=== PATIENT | female | born 1955 | race Caucasian/White ===

== ENCOUNTER 2025-07-20 10:47 | Emergency (ER) | payer MEDICARE, SELFPAY ==
[2025-07-20 11:04] LABS: Appearance Urine Clear (Clear)
[2025-07-20 11:11] VITALS: BP 121/71; PULSE 86; RESP 18; TEMP 37.3; O2SAT 96
--- NOTE | 2025-07-20 12:25 | CRLHL7_ITS ---
For Patients: As a result of the Century Cures Act, medical imaging exams and procedure reports are released immediately into your electronic medical record. You may view this report before your referring provider. If you have questions, please contact your health care provider. INDICATION: Chest pain COMPARISON: None. TECHNIQUE: PA and lateral 2 view chest. FINDINGS: Lung volumes are good. No focal or diffuse opacities. No pulmonary edema. No pleural effusion. No pneumothorax. No pneumomediastinum. Normal cardiomediastinal silhouette. Bones: Scoliosis. IMPRESSION: Lungs clear. No acute findings. Dictated by Reba Pena MD @ 07/20/2025 1:39:08 PM (Electronically Signed)
--- NOTE | 2025-07-20 12:25 | CRLHL7_ITS ---
For Patients: As a result of the Century Cures Act, medical imaging exams and procedure reports are released immediately into your electronic medical record. You may view this report before your referring provider. If you have questions, please contact your health care provider. INDICATION: Left-sided abdominal pain TECHNIQUE: Axial images were obtained from the diaphragm to the pubic symphysis. Reformats were obtained in the coronal and sagittal plane. IV Contrast: 77 cc Isovue 370 Oral Contrast: None COMPARISON: None. FINDINGS: Lower chest: Minimal basilar discoid atelectasis. Liver: Normal in contour with focal fat adjacent to the falciform ligament. Gallbladder and bile ducts: Cholelithiasis with mild gallbladder wall thickening. Spleen: Unremarkable. Normal in size without mass. Pancreas: Unremarkable. No mass or inflammation. Adrenal glands: Indeterminate left adrenal nodule measuring 12 millimeters. Kidneys: Symmetric renal enhancement without hydronephrosis. Nonobstructing nephrolithiasis. Subcentimeter hypodensities which are too small for characterization although likely represent bilateral renal cysts. Vasculature: Atherosclerosis without abdominal aortic aneurysm. GI tract: The stomach is decompressed. Trace indistinctness of the fat at the level of the antrum (5, 87). No dilated loops of large or small intestine. Appendix unremarkable. Pelvis: Bladder is unremarkable. Mild nodularity of the uterus, likely leiomyomata. Bones: Unremarkable for age. IMPRESSION: 1. Cholelithiasis with gallbladder wall thickening. Differential diagnosis for the gallbladder-wall thickening includes hyperproteinemia, underlying liver disease or cholecystitis. 2. No dilated loops of large or small intestine. Equivocal fat stranding adjacent to the gastric antrum. Differential includes artifact or gastritis/peptic ulcer disease. 3. Left adrenal nodule measuring 12 millimeters. Follow-up outpatient adrenal MRI could be considered for further characterization. Please note that all CT scans at this facility use dose modulation, iterative reconstruction, and/or weight-based dosing when appropriate to reduce radiation dose to as low as reasonably achievable. Dictated by Nick No MD @ 07/20/2025 2:06:05 PM (Electronically Signed)
--- NOTE | 2025-07-20 12:50 | ED.ABDPAIN ---
HPI - Abdominal Pain General Date Seen: 07/20/25 Chief Complaint: Abdominal Pain Stated Complaint: Needs blood work Time Seen by Provider: 07/20/25 11:19 Source: patient Mode of arrival: ambulatory Limitations: no limitations History of Present Illness HPI narrative: Patient is a 70-year-old female presenting to the emergency department for abdominal pain. She states the pain has been going on for couple weeks and seems to be mostly after she eats. Is unable describe what the pain feels like. Currently she is not having any pain. She does note that the nausea that occurs after eats seems to be worse than the pain. She commonly is almost up without having too much pain. Pain is mostly on the left upper side of her abdomen. States when this 1st started 2 weeks ago she had some fevers and black stool. Stool was also soft. She states her stool is still soft but she has not noticed any further blood in her stool. Denies having pain like this before. No history of abdominal or gynecological surgeries. Has not noticed any dysuria or hematuria. Denies ever having symptoms like this before. She states she does not have a primary care provider. Also states she has noticed some intermittent chest pain in the past 2 weeks. She is unable describes the chest pain feels like a lipoma. She thinks is just referred from her abdomen but cannot say for certain. Denies any associated shortness of breath. Denies any history of heart disease. No history of blood clots. Related Data Home Medications ?Medication ?Instructions ?Recorded ?Confirmed No Known Home Medications 07/20/25 07/20/25 Allergies Allergy/AdvReac Type Severity Reaction Status Date / Time Sulfa (Sulfonamide Allergy Mild Verified 07/20/25 11:16 Antibiotics) pencillin Allergy Mild Uncoded 07/20/25 09:59 Review of Systems Status of ROS Reports: 10 or more systems reviewed and unremarkable except as noted in History and below [facility] Smoking Status: Never smoker How often do you have a drink containing alcohol: monthly or less AUDIT-C Alcohol total score: 1 Non-prescribed substance use: denies use service: No Exam Narrative: Exam Narrative: Const: Well-nourished, Well-developed, in mild distress Eyes: PERRL, no conjunctival injection, and symmetrical lids HENT: Atraumatic external nose and ears. Moist mucous membranes. Neck: Symmetric, trachea midline, No thyromegaly. CVS: RRR, No murmurs or gallops. Peripheral pulses 2+ and equal in all extremities RESP: Unlabored respiratory effort. Clear to auscultation bilaterally. GI: Mild left-sided abdominal tenderness worse in the left upper quadrant, Nondistended, No rebound or guarding. MSK:Extremities w/o deformity, Normal Active ROM Skin: Warm, Dry. No rashes or lesions. Neuro: Normal Muscle tone, No focal neurological deficits. Psych: Awake, Alert, & Oriented x3. Appropriate mood and affect. Const: Vital Signs, click to edit/add: Vital Signs - 24 hr 07/20/25 11:11 07/20/25 14:17 Temperature 99.1 F 98.5 F Pulse Rate [Right Pulse Oximeter] 86 78 Respiratory Rate 18 18 Blood Pressure [Ri ght Forearm] 121/71 133/76 Pulse Oximetry 96 97 Oxygen Delivery Me thod Room Air Room Air Course Vital Signs Vital signs: Initial Vital Signs Temperature 99.1 F 07/20/25 11:11 Temperature Source Temporal Artery Scan 07/20/25 11:11 Pulse Rate 86 07/20/25 11:11 Pulse Rhythm Regular 07/20/25 11:11 Pulse Strength 3+ Normal 07/20/25 11:11 Respiratory Rate 18 07/20/25 11:11 Blood Pressure 121/71 07/20/25 11:11 Blood Pressure Mean 87 07/20/25 11:11 Blood Pressure Position Sitting 07/20/25 11:11 Pulse Oximetry 96 07/20/25 11:11 Oxygen Delivery Method Room Air 07/20/25 11:11 Vital Signs Temperature 99.1 F 07/20/25 11:11 Pulse Rate 86 07/20/25 11:11 Respiratory Rate 18 07/20/25 11:11 Blood Pressure 121/71 07/20/25 11:11 Pulse Oximetry 96 07/20/25 11:11 Oxygen Delivery Method Room Air 07/20/25 11:11 Temperature 98.5 F 07/20/25 14:17 Pulse Rate 78 07/20/25 14:17 Respiratory Rate 18 07/20/25 14:17 Blood Pressure 133/76 07/20/25 14:17 Pulse Oximetry 97 07/20/25 14:17 Oxygen Delivery Method Room Air 07/20/25 14:17 MDM - Abdominal Pain MDM Narrative Medical decision making narrative: Patient is a 70-year-old female presenting to emergency department for abdominal pain and nausea. She did have melena the since resolved. Could be gastroenteritis. Also possibly pancreatitis. Lipase is ordered. Since pain is worse after eating could be related to her gallbladder. Will order CT scan with IV contrast of the abdomen for evaluation. The differential diagnosis of chest pain is broad and includes common etiologies such as musculoskeletal strain, GERD, pneumonia, etc. More serious etiologies considered include PE, coronary artery disease, pneumothorax, aortic dissection, aortic aneurysm. Low concern for PE, aortic dissection, aortic aneurysm. Chest pain fall and could all be related to the abdominal pain. It is intermittent in nature and she is having a heart time scribe's unit. Did states he was worse at night and could be reflux. Will do chest x-ray for better evaluation. Will also order EKG and troponin along with viral swabs. alarm security or surveillance monitor ordered. Also ordered CBC, CMP, lipase, magnesium, urinalysis. EKG interpreted by myself shows no acute concerning abnormalities. Patient's lab work returned showing no acute concerning abnormalities. Hemoglobin is 9.4 but unsure what her baseline is. She states she currently is not having any black stools. Chest x-ray interpreted by myself and the radiologist independently showed no acute concerning abnormalities. CT scan of the abdomen pelvis does show some cholelithiasis with gallbladder wall thickening. There is also a left adrenal nodule that can be follow-up outpatient. Due to the cholelithiasis wall thickening I will order an ultrasound. Ultrasound was ordered and shows a large gallstone borderline appearance of cholecystitis. There is no Clay sign. I did speak to the on-call general surgeon,, Dr. Erwin, who recommends outpatient EGD considering her pain is on the left side and to follow up outpatient with General surgery. She is agreeable to this plan. She will be discharged. Lab Data Labs: Lab Results 07/20/25 07/20/25 07/20/25 Range/Units 10:55 12:25 12:45 WBC 6.12 (4.50-11.00) K/uL RBC 3.07 L (4.00-5.20) m/uL Hgb 9.4 L (12.0-16.0) gm/dL Hct 29.3 L (33.0-51.0) % MCV 95 (80-100) fL MCH 31 (26-34) pg MCHC 32 (32-36) gm/dL RDW Coeff of Deborah 13.9 (11.5-15.5) % Plt Count 533 H (140-440) K/uL Neut % (Auto) 65.5 (42.0-72.0) % Lymph % (Auto) 24.7 (20-44) % [place] % (Auto) 8.3 (0.0-11.0) % Eos % (Auto) 1.0 (0.0-7.0) % Baso % (Auto) 0.2 (0.0-3.0) % Neut # (Auto) 4.01 (1.7-7.0) K/uL Lymph # (Auto) 1.51 (0.90-2.90) K/uL [place] # (Auto) 0.50 (0.00-0.90) K/UL Eos # (Auto) 0.06 (0.00-0.50) K/uL Baso # (Auto) 0.01 (0.00-0.30) K/uL Abs Immat Gran (auto) 0.02 (0.00-0.30) K/uL Imm/Tot Granulo (auto) 0.3 % Sodium 137 (135-149) mmol/L Potassium 3.7 (3.6-5.1) mmol/L Chloride 101 (96-114) mmol/L Carbon Dioxide 26 (20-32) mmol/L Anion Gap 10 (7-15) mEq/L BUN 9 (7-30) mg/dL Creatinine 0.5 (0.5-1.5) mg/dL Estimated GFR 102 ml/min Glucose 101 (60-115) mg/dL Calcium 8.9 (8.4-10.6) mg/dL Magnesium 2.2 (1.5-2.6) mg/dL Total Bilirubin 0.2 (0.1-1.5) mg/dL AST 26 (12-35) U/L ALT 17 (4-35) U/L Alkaline Phosphatase 99 (40-150) U/L Troponin I < 0.01 (0.01-0.04) ng/mL Total Protein 7.1 (6.0-8.3) g/dL Albumin 4.1 (3.3-5.0) g/dL Lipase 81 (23-300) U/L Urine Color Yellow (Yellow) Urine Appearance Clear (Clear) Urine pH 5.5 (5.0-8.5) Ur Specific [place] >= 1.030 (1.000-1.030) Urine Protein 1+ A (Negative) Urine Glucose (UA) Negative (Negative) Urine Ketones 1+ A (Negative) Urine Blood Trace-intact A (Negative) Urine Nitrite Negative (Negative) Urine Bilirubin 1+ A (Negative) Urine Urobilinogen 0.2 (0.2-1.0) Ur Leukocyte Esterase Trace A (Negative) Urine RBC 0-2 (0-2) Urine WBC 0-2 (0-5) Ur Squamous Epith Cells None (None-Few) Amorphous Sediment Many A (None) Urine Bacteria None (None) SARS-CoV-2 (PCR) Negative SARS-CoV-2 (Negative) Influenza Type A (PCR) Negative PCR FLU A (Negative) Influenza Type B (PCR) Negative PCR FLU B (Negative) RSV (PCR) Negative PCR RSV (Negative) POC Creatinine 0.6 (0.6-1.3) mg/dl Imaging Data Chest x-ray: Attestation: I have reviewed the pertinent imaging results. Radiologist's impression: Lungs clear. No acute findings. Dictated by Reba Pena MD @ 07/20/2025 1:39:[address] scan abdomen pelvis: Attestation: I have reviewed the pertinent imaging results. Radiologist's impression: 1. Cholelithiasis with gallbladder wall thickening. Differential diagnosis for the gallbladder-wall thickening includes hyperproteinemia, underlying liver disease or cholecystitis. 2. No dilated loops of large or small intestine. Equivocal fat stranding adjacent to the gastric antrum. Differential includes artifact or gastritis/peptic ulcer disease. 3. Left adrenal nodule measuring 12 millimeters. Follow-up outpatient adrenal MRI could be considered for further characterization. Please note that all CT scans at this facility use dose modulation, iterative reconstruction, and/or weight-based dosing when appropriate to reduce radiation dose to as low as reasonably achievable. Dictated by Nick No MD @ 07/20/2025 2:06:05 PM US - abdomen: Radiologist's impression: Large gallstone. Borderline appearance of the gallbladder with a negative sonographic Clay`s sign. Dictated by Reba Pena MD @ 07/20/2025 3:08:17 PM ECG Data Attestation: I personally reviewed and interpreted this ECG as follows: Prior ECG tracings: not available for review Interpretation: Normal sinus rhythm with a rate of 73 beats per minute, normal intervals, normal axis, no ST or T-wave abnormalities. Discharge Plan Discharge Clinical Impression: Cholelithiasis Qualifiers: Cholelithiasis location: gallbladder Cholecystitis presence: without cholecystitis Biliary obstruction: without biliary obstruction Qualified Code(s): K80.20 - Calculus of gallbladder without cholecystitis without obstruction Patient Disposition: Home, Self-Care Condition: Stable Instructions: Upper Endoscopy (DC), Exploratory Laparoscopy (DC) Additional Instructions: It seems her symptoms are likely from gallstones. Considering the pain is more on the left side though general surgery recommends doing upper endoscopy. The order was put in they should call you within the next couple days to set up an appointment. She also recommend you follow up with General surgery. Their number is [phone]. If you start developing worsening symptoms or fevers or any other new or concerning symptoms return to the emergency department for re-evaluation. Recommend staying away from any hot or spicy foods or any fatty foods. Prescriptions: No Action No Known Home Medications Follow Up/Referrals: Provider,Not a Local [Primary Care Provider, Family Practice] Stand Alone Forms: [employer] Info Instructions
[2025-07-20 12:55] LABS: Hematocrit* 29.3 % (33.0-51.0); Hemoglobin* 9.4 gm/dL (12.0-16.0); Immature Granulocytes Abs Auto 0.02 K/uL (0.00-0.30); Immature Granulocytes Pct Auto 0.3 %; Lymphocytes Absolute Auto 1.51 K/uL (0.90-2.90); Mean Corpuscular HGB Conc 32 gm/dL (32-36); Mean Corpuscular Hemoglobin 31 pg (26-34); Mean Corpuscular Volume 95 fL (80-100); RDW Coefficient of Variation % 13.9 % (11.5-15.5); Red Blood Count* 3.07 m/uL (4.00-5.20); White Blood Count* 6.12 K/uL (4.50-11.00)
[2025-07-20 12:58] LABS: Creatinine, Point-of-Care* 0.6 mg/dl (0.6-1.3)
[2025-07-20 13:05] LABS: Slide Review Reflex No
[2025-07-20 13:07] LABS: Albumin* 4.1 g/dL (3.3-5.0); Chloride* 101 mmol/L (96-114); Potassium* 3.7 mmol/L (3.6-5.1); Sodium* 137 mmol/L (135-149)
[2025-07-20 13:10] LABS: Alanine Aminotransferase* 17 U/L (4-35); Alkaline Phosphatase* 99 U/L (40-150); Anion Gap 10 mEq/L (7-15); Aspartate Amino Transferase* 26 U/L (12-35); Bilirubin Total* 0.2 mg/dL (0.1-1.5); Blood Urea Nitrogen* 9 mg/dL (7-30); Calcium* 8.9 mg/dL (8.4-10.6); Carbon Dioxide* 26 mmol/L (20-32); Creatinine* 0.5 mg/dL (0.5-1.5); Estimated Glomerular Filt Rate 102 ml/min; Glucose* 101 mg/dL (60-115); Total Protein* 7.1 g/dL (6.0-8.3)
[2025-07-20 13:33] LABS: PCR FLU A Negative PCR FLU A (Negative); PCR FLU B Negative PCR FLU B (Negative); PCR RSV Negative PCR RSV (Negative); SARS PCR* Negative SARS-CoV-2 (Negative)
--- NOTE | 2025-07-20 14:15 | CRLHL7_ITS ---
For Patients: As a result of the Century Cures Act, medical imaging exams and procedure reports are released immediately into your electronic medical record. You may view this report before your referring provider. If you have questions, please contact your health care provider. INDICATION: Abdominal pain COMPARISON: Same day CT abdomen pelvis TECHNIQUE: Harrell-scale and color Doppler ultrasound of the gallbladder and bile ducts FINDINGS: The gallbladder is distended. There is a large shadowing gallstone that measures 3.7 x 1.6 x 3.2 cm. There is a small amount of sludge in the gallbladder. The gallbladder wall thickness is 3 millimeters, upper limits of normal. There is some pericholecystic fluid. Negative sonographic Clay`s sign. The extrahepatic bile duct is normal at 5 millimeters. No choledocholithiasis seen. IMPRESSION: Large gallstone. Borderline appearance of the gallbladder with a negative sonographic Clay`s sign. Dictated by Reba Pena MD @ 07/20/2025 3:08:17 PM (Electronically Signed)
[2025-07-20 14:17] VITALS: BP 133/76; PULSE 78; RESP 18; TEMP 36.9; O2SAT 97
== END 2025-07-20 16:33 | disposition home or self-care (01) ==
PROVIDERS: Emergency Provider Student in an Organized Health Care Education/Training Program
DX: K80.20 Calculus of gallbladder without cholecystitis without obstruction (principal)
CPT/HCPCS: 36415; 71046; 74177; 76705; 80053; 81001; 82565; 83690; 83735; 84484; 85025; 87086; 87631; 93005; 99285; Q9967